=== PATIENT | male | born 1950 | race Caucasian/White ===

== ENCOUNTER → 2017-12-31 | Outpatient (CLI) | payer BC ==
[~2017-12-31] MED LIST: CRESTOR 10MG10 MG PO; DULERA1 AR1 IH; HCTZ 25MG TAB25 MG PO; HYZAAR 25 MG-101 TAB PO; LANTUS100 U/ML SC; LEVOXYL0.1 MG PO; NOVOLOG 100U100 U/M1 SC; PROAIR HFA0.09 MG/AC IH; SINGULAIR 110 MG/TAB PO
[2017-12-31 16:02] LABS: BASO # 0.1 (0.0-0.2); BASO % 1.3 % (0.0-2.0); EOS # 0.6 (0.0-0.7); EOS % 5.3 % (0-4.0); GRAN # 7.4 (1.4-6.5); GRAN % 66.3 % (42.2-75.2); HEMATOCRIT 43.3 % (42.0-52.0); LYMPH # 2.3 (1.2-3.4); LYMPH % 20.7 % (20.0-51.0); MEAN CELL VOLUME 84 fl (80.0-100.0); MEAN CORPUSCULAR HEMOGLOBIN 29 pg (27.0-31.0); MEAN CORPUSCULAR HGB CONC 35 g/dl (33.0-37.0); MEAN PLATELET VOLUME 11.5 fl (7.4-10.4); MONO # 0.7 (0.1-0.6); PLATELET COUNT 222 K/mm3 (130-400); RED BLOOD COUNT 5.14 M/mm3 (4.20-5.60); REDCELL DISTRIBUTION WIDTH-CV 13.2 % (11.5-14.5)
[2017-12-31 16:24] LABS: ERYTHROCYTE SEDIMENTATION RATE 6 mm/hr (0-30)
== END ==
LOC: COL.VAS 15:10
PROVIDERS: Family Medicine
DX: M79.89 Other specified soft tissue disorders (principal)

== ENCOUNTER 2018-04-30 09:54 | Day surgery (SDC) | payer BC ==
[~2018-04-30] VITALS: Ht 170.2 cm; Wt 82.1 kg
[2018-04-30] VITALS (9 sets, daily range): BP systolic 96–136; BP diastolic 65–83; PULSE 59–68; TEMP 97.7
[2018-04-30 10:24] LABS: HEMATOCRIT 41.3 % (42.0-52.0); HEMOGLOBIN 14.3 g/dl (13.5-18.0); MEAN CELL VOLUME 85 fl (80.0-100.0); MEAN CORPUSCULAR HEMOGLOBIN 29 pg (27.0-31.0); MEAN CORPUSCULAR HGB CONC 35 g/dl (33.0-37.0); MEAN PLATELET VOLUME 11.3 fl (7.4-10.4); PLATELET COUNT 231 K/mm3 (130-400); RED BLOOD COUNT 4.89 M/mm3 (4.20-5.60); REDCELL DISTRIBUTION WIDTH-CV 12.7 % (11.5-14.5)
[2018-04-30 10:27] LABS: INR 1.2 (0.8-3.0); PROTHROMBIN TIME 13.3 SECONDS (9.7-12.8)
[2018-04-30 10:33] LABS: CALCIUM 9.2 mg/dL (8.4-10.2); CREATININE, serum 1.11 mg/dL (0.66-1.25); POTASSIUM 3.7 mmol/L (3.4-5.0)
[2018-04-30] MEDS ORDERED: IMDUR 30MG30 MG/TAB PO (10:45)
[2018-04-30] MEDS ORDERED: ASPIRIN 81M81 MG/TA2 PO (10:46)
[2018-04-30] MEDS ORDERED: TOPROL XL 25MG25 MG PO (10:46)
[2018-04-30] MEDS ORDERED: TRESIBA FL200 UNIT/1 SQ (10:47)
== END 2018-04-30 16:30 | disposition home or self-care (01) ==
LOC: COL.CAR 09:54
PROVIDERS: Internal Medicine Cardiovascular Disease
DX: I25.118 Atherosclerotic heart disease of native coronary artery with other forms of angina pectoris (principal); R94.39 Abnormal result of other cardiovascular function study; I10 Essential (primary) hypertension; E10.42 Type 1 diabetes mellitus with diabetic polyneuropathy; E03.9 Hypothyroidism, unspecified; E78.00 Pure hypercholesterolemia, unspecified; Z79.82 Long term (current) use of aspirin; Z79.4 Long term (current) use of insulin; Z82.49 Family history of ischemic heart disease and other diseases of the circulatory system; Z82.3 Family history of stroke
CPT/HCPCS: C1887; C1894; J1644; J2250; J3010; Q9967